=== PATIENT | female | born 2005 | race Caucasian/White ===

== ENCOUNTER 2025-05-07 19:00 | Inpatient (IN) ==
[2025-05-07 19:27] VITALS: BMI 29.8
[2025-05-07 19:38] LABS: BLOOD/HEMOGLOBIN,URINE 1+ (NEGATIVE); LEUKOCYTE ESTERASE ,URINE NEGATIVE (NEGATIVE); NITRITES,URINE NEGATIVE (NEGATIVE)
[2025-05-07 19:39] LABS: APPEARANCE,URINE CLEAR (CLEAR)
[2025-05-07 19:45] LABS: SQUAMOUS EPITHELIAL CELL,UR MODERATE /HPF (NEGATIVE)
[2025-05-07] MEDS ORDERED: NORMODYNE INJ 20 MG VIAL IVP PRN (19:52)
[2025-05-07] MEDS ORDERED: APRESOLINE INJ 20 MG VIAL IVP PRN ×4 (19:52)
[2025-05-07] MEDS: NORMODYNE INJ 20 MG VIAL IVP PRN ×2 (20:11→21:37)
[2025-05-07 20:15] LABS: MEAN PLATELET VOLUME 9.3 fL (7.4-11.0); RED CELL DISTRIBUTION WIDTH 13.3 % (11.6-16.5)
[2025-05-07 20:28] LABS: COR CA(FOR HYPOALB) 10.2 mg/dL (8.5-10.1); CREATININE 0.94 mg/dL (0.55-1.02); LACTATE DEHYDROGENASE 193 Units/L (81-234); eGFR NON BLACK RACES > 60 (>60)
[2025-05-07] MEDS: NS 1,000 ML IV 1,000 ML IV SCH (21:01)
--- NOTE | 2025-05-07 21:09 | US ---
EXAM: BIOPHYSICAL PROFILE HISTORY: ELEVATED BP; COMPARISON: None available. TECHNIQUE: Multiple grayscale and color flow Doppler images of the pelvis were obtained with focused evaluation of the fetus. FINDINGS: A viable single intrauterine is identified with heart tones of 141 beats per minute. A cephalic presentation is observed with a fundal placenta. FANNIE of 14.1 cm. A three-vessel cord is observed. Biophysical profile: tone:2 Gross body movements:2 breathin Amniotic fluid:2 Total:8 IMPRESSION: BPP = 01/15 THIS IS AN ELECTRONICALLY VERIFIED FINAL REPORT 05/07/2025 9:06 PM - Electronically signed by Thomas Murray MD
[2025-05-08 05:25] LABS: MEAN PLATELET VOLUME 9.5 fL (7.4-11.0); RED CELL DISTRIBUTION WIDTH 13.3 % (11.6-16.5)
[2025-05-08 05:39] LABS: COR CA(FOR HYPOALB) 9.8 mg/dL (8.5-10.1); CREATININE 0.74 mg/dL (0.55-1.02); eGFR NON BLACK RACES > 60 (>60)
[2025-05-08 05:49] LABS: INR 0.91 (0.8-1.3)
[2025-05-08] MEDS ORDERED: CONSULT PHARMACY - POTASSIUM & MAGNESIUM XX SCH (07:00)
[2025-05-08] MEDS: PROTONIX TAB 40 MG PO SCH (08:39)
[2025-05-08] MEDS: PRENATAL PLUS PO SCH (08:39)
[2025-05-08] MEDS: K-DUR TAB 20 MEQ PO SCH (08:39)
[2025-05-08] MEDS: NORMODYNE TAB 200 MG PO SCH (09:58)
[2025-05-08] MEDS: LABETALOL HCL IVP ONE ×2 (18:32→22:15)
[2025-05-08] MEDS ORDERED: TYLENOL 500 MG TAB EXTRA STRENGTH PO PRN (20:25)
[2025-05-08] MEDS: TYLENOL 500 MG TAB EXTRA STRENGTH PO PRN (20:46)
[2025-05-08] MEDS: NORMODYNE INJ 20 MG VIAL IVP ONE (21:50)
[2025-05-09 01:24] LABS: MEAN PLATELET VOLUME 9.0 fL (7.4-11.0); RED CELL DISTRIBUTION WIDTH 13.4 % (11.6-16.5)
[2025-05-09 01:29] LABS: INR 0.89 (0.8-1.3)
[2025-05-09 01:34] LABS: COR CA(FOR HYPOALB) 9.6 mg/dL (8.5-10.1); CREATININE 0.83 mg/dL (0.55-1.02); LACTATE DEHYDROGENASE 168 Units/L (81-234); eGFR NON BLACK RACES > 60 (>60)
[2025-05-09] MEDS: HIBICLENS WASH EXT ONE (05:25)
[2025-05-09] MEDS: PRECEDEX INJ VIAL ONE (07:14)
[2025-05-09] MEDS: OFIRMEV IV 1000 MG VIAL 1,000 MG/100 ML VIAL IV ONE (07:14)
[2025-05-09] MEDS: TORADOL 30 MG VIAL ONE ×2 (07:15→12:17)
[2025-05-09] MEDS: EPHEDRINE SULFATE INJ ONE (07:16)
[2025-05-09] MEDS: DECADRON INJ ONE (07:16)
[2025-05-09] MEDS: MARCAINE SPINAL ONE (07:16)
[2025-05-09] MEDS: PITOCIN ONE (07:16)
[2025-05-09] MEDS: REGLAN INJ 10 MG VIAL ONE (07:16)
[2025-05-09] MEDS: ZOFRAN INJ 4 MG VIAL ONE (07:16)
[2025-05-09] MEDS: PEPCID 20 MG VIAL ONE (07:25)
[2025-05-09] MEDS: LR 1,000 ML IV 1,000 ML IV ONE ×2 (07:30→07:50)
[2025-05-09] MEDS: ZOFRAN INJ 4 MG VIAL IVP PRN (07:50)
[2025-05-09] MEDS: PEPCID 20 MG VIAL IVP PRN (07:52)
[2025-05-09] MEDS: REGLAN INJ 10 MG VIAL IVP PRN (07:55)
[2025-05-09] MEDS: NS 100 ML IV 100 ML ONE (07:58)
[2025-05-09] MEDS: ANCEF VIAL 1 GRAM ONE (07:58)
[2025-05-09] MEDS ORDERED: DILAUDID INJ IVP PRN ×2 (07:59→11:36)
[2025-05-09] MEDS ORDERED: ZOFRAN INJ 4 MG VIAL IVP PRN ×2 (07:59→11:36)
[2025-05-09] MEDS ORDERED: BENADRYL INJ 50 MG VIAL IVP PRN ×2 (07:59→11:36)
[2025-05-09] MEDS: XYLOCAINE 2 % (PLAIN) ONE (08:00)
[2025-05-09] MEDS: ANCEF VIAL 1 GRAM IV PRN (08:05)
[2025-05-09] MEDS: OFIRMEV IV 1000 MG VIAL 1,000 MG/100 ML VIAL IV PRN (08:20)
[2025-05-09] MEDS: DECADRON INJ IVP PRN (08:30)
[2025-05-09] MEDS: PITOCIN IVP PRN (08:45)
[2025-05-09] MEDS: EPHEDRINE SULFATE INJ IVP PRN (08:55)
[2025-05-09] MEDS: PRECEDEX INJ VIAL IV PRN (09:35)
[2025-05-09] MEDS: TORADOL 30 MG VIAL IVP PRN (09:35)
[2025-05-09] MEDS: LABETALOL HCL IVP ONE ×3 (10:03→10:40)
[2025-05-09] MEDS: NORMODYNE INJ 100 MG VIAL ONE (10:31)
[2025-05-09 10:36] LABS: MEAN PLATELET VOLUME 9.2 fL (7.4-11.0); RED CELL DISTRIBUTION WIDTH 13.9 % (11.6-16.5)
[2025-05-09 10:50] LABS: COR CA(FOR HYPOALB) 9.4 mg/dL (8.5-10.1); CREATININE 0.79 mg/dL (0.55-1.02); LACTATE DEHYDROGENASE 215 Units/L (81-234); eGFR NON BLACK RACES > 60 (>60)
[2025-05-09] MEDS: APRESOLINE INJ 20 MG VIAL ONE (10:52)
[2025-05-09] MEDS: MAGNESIUM SULFATE 40 GRAMS IV 40 G/1,000 ML BAG IV SCH (11:30)
[2025-05-09] MEDS: MAGNESIUM SULFATE 40 GRAMS IV 40 G/1,000 ML BAG IV ONE (11:30)
[2025-05-09] MEDS ORDERED: MYLICON TAB 80 MG CHEW PO PRN (11:36)
[2025-05-09] MEDS ORDERED: APRESOLINE INJ 20 MG VIAL IVP PRN ×8 (11:36→11:46)
[2025-05-09] MEDS ORDERED: NUBAIN INJ 10 MG AMP IVP PRN (11:36)
[2025-05-09] MEDS ORDERED: REGLAN INJ 10 MG VIAL IVP PRN (11:36)
[2025-05-09] MEDS ORDERED: NORMODYNE INJ 20 MG VIAL IVP PRN ×4 (11:36→11:46)
[2025-05-09] MEDS ORDERED: MAGNESIUM SULFATE 40 GRAMS IV 40 G/1,000 ML BAG IV PRN ×2 (11:36→11:46)
[2025-05-09] MEDS: OXYTOCIN 20 UNIT/1,000 ML-NS 20 UNIT/1,000 ML PLAST..BAG IV SCH (11:50)
[2025-05-09] MEDS ORDERED: OFIRMEV IV 1000 MG VIAL 1,000 MG/100 ML VIAL IV ONE (11:58)
[2025-05-09] MEDS: TORADOL 30 MG VIAL IVP SCH (12:04)
[2025-05-09] MEDS: OFIRMEV IV 1000 MG VIAL 1,000 MG/100 ML VIAL IV SCH (12:05)
[2025-05-09] MEDS: D5 LR 1,000 ML 0 ML IV ONE (12:14)
[2025-05-09] MEDS: ADACEL or BOOSTRIX TDaP VACCINE IM ONE (12:30)
[2025-05-09] MEDS: MOTRIN TAB 800 MG PO PRN (12:37)
[2025-05-09] MEDS: NS 500 ML IV 500 ML IV ONE ×2 (13:29→13:32)
[2025-05-09] MEDS ORDERED: STERILE WATER IRRIGATION IR ONE (13:36)
[2025-05-09] MEDS: PERCOCET TAB 5/325 MG PO PRN (13:51)
[2025-05-09] MEDS: LOVENOX INJ 40 MG SYR SC SCH (14:36)
[2025-05-09 14:45] LABS: MEAN PLATELET VOLUME 9.5 fL (7.4-11.0)
[2025-05-09 14:48] LABS: RED CELL DISTRIBUTION WIDTH 13.9 % (11.6-16.5)
[2025-05-09 14:49] LABS: INR 1.00 (0.8-1.3)
[2025-05-09 14:55] LABS: COR CA(FOR HYPOALB) 9.1 mg/dL (8.5-10.1); CREATININE 0.84 mg/dL (0.55-1.02); LACTATE DEHYDROGENASE 229 Units/L (81-234); eGFR NON BLACK RACES > 60 (>60)
[2025-05-09 15:10] LABS: BAND NEUTROPHILS % 1 % (0-10)
[2025-05-09 15:11] LABS: PLATELET MORPHOLOGY COMMENT NORMAL (NORMAL)
[2025-05-09 20:38] LABS: MEAN PLATELET VOLUME 9.0 fL (7.4-11.0); RED CELL DISTRIBUTION WIDTH 13.7 % (11.6-16.5)
[2025-05-09 20:41] LABS: INR 1.00 (0.8-1.3)
[2025-05-09 20:47] LABS: COR CA(FOR HYPOALB) 8.9 mg/dL (8.5-10.1); COR NA(FOR HYPERGLY) 133 mmol/L (136-145); CREATININE 0.95 mg/dL (0.55-1.02); LACTATE DEHYDROGENASE 255 Units/L (81-234); eGFR NON BLACK RACES > 60 (>60)
[2025-05-09] MEDS: COLACE CAP 100 MG PO SCH (20:57)
[2025-05-09] MEDS: NS 1,000 ML IV 1,000 ML IV SCH (20:58)
[2025-05-09 20:59] LABS: PLATELET MORPHOLOGY COMMENT NORMAL (NORMAL)
[2025-05-09] MEDS ORDERED: NORMODYNE TAB 200 MG PO SCH (21:00)
[2025-05-09] MEDS ORDERED: NORMODYNE TAB 100 MG PO SCH (21:00)
[2025-05-09] MEDS: NS 1,000 ML IV 1,000 ML ONE (21:17)
[2025-05-10 02:14] LABS: MEAN PLATELET VOLUME 9.1 fL (7.4-11.0); RED CELL DISTRIBUTION WIDTH 14.0 % (11.6-16.5)
[2025-05-10 02:18] LABS: INR 1.04 (0.8-1.3)
[2025-05-10 02:23] LABS: COR CA(FOR HYPOALB) 8.6 mg/dL (8.5-10.1); COR NA(FOR HYPERGLY) 134 mmol/L (136-145); CREATININE 0.87 mg/dL (0.55-1.02); LACTATE DEHYDROGENASE 220 Units/L (81-234); eGFR NON BLACK RACES > 60 (>60)
[2025-05-10] MEDS ORDERED: PRENATAL PLUS PO SCH ×2 (09:00)
[2025-05-10] MEDS ORDERED: PROTONIX TAB 40 MG PO SCH (09:00)
[2025-05-10] MEDS: NORMODYNE TAB 100 MG PO SCH (09:40)
[2025-05-10] MEDS: BACTROBAN TOPICAL OINT TOP SCH (14:02)
[2025-05-11 04:32] LABS: MEAN PLATELET VOLUME 8.5 fL (7.4-11.0); RED CELL DISTRIBUTION WIDTH 14.0 % (11.6-16.5)
[2025-05-11 04:42] LABS: COR CA(FOR HYPOALB) 9.2 mg/dL (8.5-10.1); CREATININE 0.75 mg/dL (0.55-1.02); eGFR NON BLACK RACES > 60 (>60)
[2025-05-11 10:14] VITALS: PULSE 83; RESP 18; TEMP 98.6; O2SAT 97
[2025-05-11 10:16] VITALS: BP 150/94
== END 2025-05-11 10:15 | disposition home or self-care (01) | DRG 786 ==
LOC: MED/SURG 19:03 → ICU 19:03 → ER 19:03 → MED/SURG 20:46 → LD 05-09 09:06 → ICU 05-09 11:32 → MED/SURG 05-10 09:00
PROVIDERS: ADMIT Specialist; ATTEND Specialist
DX: Z3A.36 36 weeks gestation of pregnancy; K21.9 Gastro-esophageal reflux disease without esophagitis; R51.9 Headache, unspecified; R79.89 Other specified abnormal findings of blood chemistry; Z37.0 Single live birth; O13.3 Gestational [pregnancy-induced] hypertension without significant proteinuria, third trimester; O60.14X0 Preterm labor third trimester with preterm delivery third trimester, not applicable or unspecified; O99.613 Diseases of the digestive system complicating pregnancy, third trimester; O14.14 Severe pre-eclampsia complicating childbirth